=== PATIENT | female | born 1975 | race Caucasian/White ===

== ENCOUNTER 2019-06-11 13:46 | Emergency (ER) | payer OTHER ==
[2019-06-11 14:30] VITALS: BP 174/106; PULSE 90; RESP 18; TEMP 98
[2019-06-11] MEDS ORDERED: IBUPROFEN 600 MG STARTER PACK 4 TAB BTL PO STA (16:02)
--- NOTE | 2019-06-11 16:02 | ED ---
General Adult HPI - General Chief complaint: Extremity Injury, Upper Stated complaint: Hand injury Time Seen by Provider: 06/11/19 15:30 Source: patient, RN notes reviewed Mode of arrival: ambulatory Limitations: no limitations - History of Present Illness Initial comments: Patient is a pleasant 43-year-old female presenting to the emergency department with complaints of right hand discomfort. Incident occurred at work just the other day. Patient slipped with her hand and struck it on the metal piece. Patient complains of discomfort of her fifth metacarpal region since that time. Discomfort increases with movement of the fingers. Discomfort does radiate somewhat towards the fingers and somewhat up the forearm. No other area of injury. No laceration. Patient has struck her hand several times in this area previously worked as well. - Related Data Previous Rx's Medication Instructions Recorded Ibuprofen [Motrin] 600 mg PO Q6HR PRN #20 tab 06/11/19 Allergies Allergy/AdvReac Type Severity Reaction Status Date / Time No Known Allergies Allergy Verified 06/11/19 14:27 Review of Systems ROS Statement: Those systems with pertinent positive or pertinent negative responses have been documented in the HPI. ROS Other: All systems not noted in ROS Statement are negative. Constitutional: Denies: fever Eyes: Denies: eye pain ENT: Denies: ear pain Respiratory: Denies: cough Cardiovascular: Denies: chest pain Endocrine: Denies: fatigue Gastrointestinal: Denies: abdominal pain Genitourinary: Denies: dysuria Musculoskeletal: Denies: back pain Skin: Denies: rash Neurological: Denies: weakness Past Medical History Past Medical History: No Reported History History of Any Multi-Drug Resistant Organisms: None Reported Past Surgical History: No Surgical Hx Reported Past Psychological History: No Psychological Hx Reported Smoking Status: Current every day smoker Past Alcohol Use History: Occasional Past Drug Use History: None Reported General Exam Limitations: no limitations General appearance: alert, in no apparent distress Head exam: Present: atraumatic Eye exam: Present: normal appearance Neck exam: Present: normal inspection Respiratory exam: Present: normal lung sounds bilaterally Cardiovascular Exam: Present: regular rate, normal rhythm GI/Abdominal exam: Present: soft. Absent: tenderness Right Hand Wrist exam: Present: full ROM, tenderness (Tenderness right mid fifth metacarpal), swelling (Mild swelling), other (Distally the hand is neurovascularly intact). Absent: abrasion, laceration, ecchymosis, deformity Neurological exam: Present: alert. Absent: motor sensory deficit Psychiatric exam: Present: normal affect, normal mood Skin exam: Present: normal color Course Vital Signs 06/11/19 14:28 Temperature 98 F Pulse Rate 90 Respiratory 18 Rate Blood Pressure 174/106 O2 Sat by Pulse 99 Oximetry Procedures - Orthopedic Splinting/Casting Injury #1 Side: right Upper Extremity Injury Location: short arm, hand Upper Extremity Immobilizer: ulnar gutter Additional Comments: Examined post placement, neurovascular intact Medical Decision Making - Radiology Data Interpreted by me: Right hand x-ray reveals no acute process Disposition Clinical Impression: Hand contusion Disposition: HOME SELF-CARE Condition: Stable Instructions (If sedation given, give patient instructions): Contusion in Adults (ED) Additional Instructions: Please follow-up with [employer] in the next day or 2 for recheck. No use right hand until released by Dr. Dye to affected area. Return for worsening symptoms or other concerns. Prescription sent to [facility] Prescriptions: Ibuprofen [Motrin] 600 mg PO Q6HR PRN #20 tab PRN Reason: Pain Is patient prescribed a controlled substance at d/c from ED?: No Referrals: Ethel Medina MD [Primary Care Provider] - 1-2 days Time of Disposition: 16:01
--- NOTE | 2019-06-11 16:11 | XR ---
EXAMINATION TYPE: XR hand complete RT DATE OF EXAM: 06/11/2019 COMPARISON: NONE HISTORY: 27-year-old female pain after injury at the fifth metacarpal area TECHNIQUE: 3 views FINDINGS: A ring is present on the middle finger. No acute fracture, subluxation, or dislocation. IMPRESSION: No acute osseous abnormality seen.
== END 2019-06-11 16:37 | disposition home or self-care (01) ==
LOC: EC 13:46
DX: S60.221A Contusion of right hand, initial encounter (principal); F17.200 Nicotine dependence, unspecified, uncomplicated; W22.8XXA Striking against or struck by other objects, initial encounter; Y92.89 Other specified places as the place of occurrence of the external cause
CPT/HCPCS: 29125; 99283

== ENCOUNTER 2020-05-08 13:46 | Emergency (ER) | payer OTHER ==
[2020-05-08 14:00] VITALS: BP 151/101; PULSE 103; RESP 18; TEMP 98.1
--- NOTE | 2020-05-08 14:20 | XR ---
EXAMINATION TYPE: XR foot complete LT DATE OF EXAM: 05/08/2020 CLINICAL HISTORY: Fluid in particular heel pain TECHNIQUE: Frontal, lateral, and oblique images of the left foot are obtained. COMPARISON: None FINDINGS: There is no acute fracture/dislocation evident in the left foot. The joint spaces in the left foot appear within normal limits. Tripartite patella. Flexion and varus positioning distal fourt h and fifth toes. Large inferior calcaneal spur. The overlying soft tissue appears unremarkable. IMPRESSION: Large inferior calcaneal spur.
--- NOTE | 2020-05-08 14:25 | ED ---
Lower Extremity Injury HPI - General Chief Complaint: Extremity Injury, Lower Stated Complaint: foot injury Source: patient Mode of arrival: wheelchair Limitations: no limitations - History of Present Illness Initial Comments: Patient is a 44-year-old female presenting to emergency department with chief complaint of foot pain. Patient states she was in the bathroom when she lost her balance and fell with most or pressure applied to the left heel. Patient reports she can barely applying pressure due to the pain. She denies any numbness or tingling. She denies any obvious bony deformities, ecchymosis, erythema, abrasion or laceration to the site of injury. Patient denies any inversion or eversion injury. Denies any ankle pain. Denies any fifth metatarsal or mid foot tenderness. Denies taking medication to alleviate the symptoms. He states the incident occurred about 2 hours prior to arrival. - Related Data Previous Rx's Medication Instructions Recorded Ibuprofen [Motrin] 600 mg PO Q6HR PRN #20 tab 06/11/19 Allergies Allergy/AdvReac Type Severity Reaction Status Date / Time No Known Allergies Allergy Verified 05/08/20 14:00 Review of Systems ROS Statement: Those systems with pertinent positive or pertinent negative responses have been documented in the HPI. ROS Other: All systems not noted in ROS Statement are negative. Past Medical History Past Medical History: No Reported History History of Any Multi-Drug Resistant Organisms: None Reported Past Surgical History: No Surgical Hx Reported Past Psychological History: No Psychological Hx Reported Past Alcohol Use History: Occasional Past Drug Use History: None Reported General Exam Limitations: no limitations General appearance: alert, in no apparent distress Head exam: Present: atraumatic, normocephalic, normal inspection Eye exam: Present: normal appearance, PERRL, EOMI Pupils: Present: normal accommodation ENT exam: Present: normal exam, normal oropharynx, mucous membranes moist Neck exam: Present: normal inspection, full ROM. Absent: tenderness Respiratory exam: Present: normal lung sounds bilaterally. Absent: respiratory distress Cardiovascular Exam: Present: regular rate, normal rhythm, normal heart sounds Extremities exam: Present: normal inspection, full ROM, tenderness (Tenderness all along the plantar aspect of the left heel.), normal capillary refill, other (+2 dorsalis pedis and posterior tibialis bilaterally. Sensation intact in bilateral lower extremity is.). Absent: pedal edema, joint swelling, calf tenderness Back exam: Present: normal inspection, full ROM. Absent: tenderness Neurological exam: Present: alert, oriented X3 Psychiatric exam: Present: normal affect, normal mood Skin exam: Present: warm, dry, intact, normal color Course Vital Signs 05/08/20 13:55 Temperature 98.1 F Pulse Rate 103 H Respiratory 18 Rate Blood Pressure 151/101 O2 Sat by Pulse 99 Oximetry Medical Decision Making - Medical Decision Making Patient is a 44-year-old female presenting to emergency Department with a chief complaint of left foot pain. Exam patient has localized tenderness on the anterior aspect of the left heel. Neurovascularly intact in the left lower extremity. X-ray of the left foot reveals no fracture dislocations but does indicate a large calcaneal spur. I suspect this is the cause of her pain considering it is located right at the point of tenderness. 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 Advised to follow-up with a physician industrial. Return parameters were thoroughly discussed with patient is an attending agreeable. Case discussed with physician. Disposition Clinical Impression: Calcaneal spur of left foot, Injury of left foot Disposition: HOME SELF-CARE Condition: Stable Instructions (If sedation given, give patient instructions): Plantar Fasciitis (ED), Foot Contusion (ED), Heel Spur (ED) Additional Instructions: Follow up with a physician industrial. Return to emergency department if symptoms worsen. Is patient prescribed a controlled substance at d/c from ED?: No Referrals: Ethel Medina MD [Primary Care Provider] - 1-2 days Johny Geronimo DPM [STAFF PHYSICIAN] - 1-2 days Time of Disposition: 14:41
== END 2020-05-08 14:42 | disposition home or self-care (01) ==
LOC: EC 13:46
DX: M77.32 Calcaneal spur, left foot (principal); S99.922A Unspecified injury of left foot, initial encounter; W19.XXXA Unspecified fall, initial encounter; Y92.002 Bathroom of unspecified non-institutional (private) residence as the place of occurrence of the external cause
CPT/HCPCS: 99283